=== PATIENT | male | born 1960 | race Caucasian/White ===

== ENCOUNTER → 2018-11-12 09:05 | Outpatient (CLI) | payer OTHER, SELFPAY ==
--- NOTE | 2018-11-12 | DI.US.S_ITS ---
PROCEDURE: US ABDOMEN COMPLETE INDICATIONS: ABDOMINAL PAIN TECHNIQUE: Real-time scanning was performed of the abdominal and retroperitoneal organs, with image documentation. COMPARISON: None. FINDINGS: Liver: Liver is normal in size and homogeneous in echotexture. 2 hepatic cyst present, largest measuring 2.0 cm. Gallbladder: No gallstones identified. Normal gallbladder wall. No pericholecystic fluid. Negative sonographic Leigh sign. Biliary ducts: Intrahepatic bile ducts are non-dilated. Extrahepatic bile duct caliber measures 5.0 mm. Normal is 6-7 mm or less in diameter, or 10 mm or less post-cholecystectomy. Pancreas: Visualized portions of the pancreas are sonographically normal. Spleen: Spleen is normal in size and homogeneous in echotexture. Kidneys: Kidneys are normal in size and echotexture. Right kidney measures 11.2 cm long; left kidney measures 10.9 cm long. No hydronephrosis or nephrolithiasis. No solid masses. Aorta: Visualized aorta is normal in caliber at less than 3 cm. Iliacs: Proximal common iliac arteries are normal in caliber at less than 2.5 cm. IVC: Intrahepatic inferior vena cava is patent. Miscellaneous: No free abdominal fluid. IMPRESSION: 1. No source for abdominal pain identified. Dictated by: Alex TERESA Interpreted: Sarah Mendez MD on 11/12/2018 at 11:12 Approved by: Sarah Mendez M.D. on 11/12/2018 at 12:56
== END ==
PROVIDERS: PCP Family Medicine; Visit Provider Chiropractor
DX: R10.9 Unspecified abdominal pain (principal)
CPT/HCPCS: 76700

== ENCOUNTER → 2019-10-20 08:55 | Outpatient (CLI) | payer OTHER, SELFPAY ==
--- NOTE | 2019-10-20 | DI.RAD.S_ITS ---
PROCEDURE: XR THORACIC SPINE 3V INDICATIONS: Thoracic root disorders, not elsewhere classified TECHNIQUE: 3 views of the thoracic spine were acquired. COMPARISON: [facility], CR, XR CERVICAL SPINE 4V OR 5V, 10/20/2019, 8:57. FINDINGS: Bones: No fractures or dislocations. There is a mild to moderate degree of degenerative disc disease with disc height reduction and anterior endplate osteophyte formation over the middle and lower thirds of the thoracic spine, without subluxation. No suspicious bony lesions. 12 pairs of ribs are noted, and appear intact where visualized. Soft tissues: No paravertebral stripe thickening. IMPRESSION: Mild to moderate degenerative disc disease over the middle and lower thirds of the thoracic spine without definite spinal or foraminal stenosis. Dictated by: Maxi Brown M.D. on 10/20/2019 at 11:06 Approved by: Maxi Brown M.D. on 10/20/2019 at 11:07
--- NOTE | 2019-10-20 | DI.RAD.S_ITS ---
PROCEDURE: XR CERVICAL SPINE 4V OR 5V INDICATIONS: Thoracic root disorders, not elsewhere classified TECHNIQUE: 5 views of the cervical spine acquired. COMPARISON: None. FINDINGS: Bones: No fractures or dislocations to the T1 level. Oblique images demonstrate no bony foraminal stenoses. There is a slight degree of degenerative disc height reduction at C4-5, C5-6 and to a minimal degree C6-7 Soft tissues: No prevertebral soft tissue swelling. IMPRESSION: Minimal degenerative disc disease along the mid cervical spine from C4-C5 through C6-C7 without associated identified spinal or foraminal stenosis. Dictated by: Maxi Brown M.D. on 10/20/2019 at 11:05 Approved by: Maxi Brown M.D. on 10/20/2019 at 11:06
== END ==
PROVIDERS: PCP Family Medicine; Visit Provider Chiropractor
DX: M51.14 Intervertebral disc disorders with radiculopathy, thoracic region (principal)
CPT/HCPCS: 72050; 72072

== ENCOUNTER → 2022-11-29 09:24 | Outpatient (CLI) | payer OTHER, SELFPAY ==
--- NOTE | 2022-11-29 09:27 | DI.RAD.S_ITS ---
PROCEDURE: XR LUMBAR SPINE MIN 4V INDICATIONS: BACK PAIN TECHNIQUE: 5 views of the lumbar spine were acquired, including bilateral oblique views. COMPARISON: None. FINDINGS: Bones: 5 nonrib-bearing vertebrae are present. There is 4 mm anterolisthesis of L3 on L4 and 4 mm retrolisthesis of L4 on L5. Degenerative endplate changes throughout lumbar spine is seen. No vertebral body compression fractures. No suspicious bony lesions. Soft tissues: Overlying bowel gas pattern is normal. No suspicious soft tissue calcifications. Oblique images: No pars defects. IMPRESSION: 1. Degenerative disc disease throughout lumbar spine. Grade 1 spondylolisthesis at L3-4 and L4-5 levels as above. No acute compression fracture. 2. No gross pars defects. Dictated by: Tyree Saunders M.D. on 11/29/2022 at 9:51 Approved by: Tyree Saunders M.D. on 11/29/2022 at 9:52
== END ==
PROVIDERS: PCP Physician Assistant; Referring Provider Physical Medicine & Rehabilitation; Visit Provider Physical Medicine & Rehabilitation
DX: M51.36 Other intervertebral disc degeneration, lumbar region (principal); M43.16 Spondylolisthesis, lumbar region; M54.50 Low back pain, unspecified; M76.62 Achilles tendinitis, left leg
CPT/HCPCS: 72110; 76882; 99214

== ENCOUNTER → 2023-06-15 16:34 | Outpatient (CLI) | payer OTHER, SELFPAY ==
--- NOTE | 2023-06-15 16:35 | DI.MRI.S_ITS ---
PROCEDURE: MR LUMBAR SPINE WO CON INDICATIONS: left LE EHL and Gastroc weakness TECHNIQUE: Noncontrast sagittal T1 spin echo and T2 fast echo, sagittal STIR, and T2 fast spin echo through the lumbar spine. In cases with scoliosis, additional coronal T2 fast spin echo may be performed. COMPARISON: [facility], , L-SPINE WITHOUT CONTRAST, 12/25/2011, 14:13. FINDINGS: Image quality: Excellent. Alignment and Curvature: There is normal bony alignment. Bone Marrow: Marrow is of normal overall signal. No acute vertebral body compression fractures. Spinal Cord: Conus medullaris terminates at the L1 level. Visualized cord demonstrates normal signal and size. Paraspinous Soft Tissues: No paravertebral masses. T12-L1: Mild disc desiccation. No canal stenosis. Mild bilateral foraminal narrowing. Findings are unchanged from the study dated December 25, 2011. L1-L2: Mild disc desiccation and height loss. Broad-based disc bulge. Mild facet ligamentum flavum hypertrophy. No canal stenosis. Mild bilateral foraminal narrowing. Findings are unchanged. L2-L3: Mild disc desiccation and height loss. Broad-based disc bulge. Moderate facet and ligamentum flavum hypertrophy. No canal stenosis. Mild bilateral foraminal stenosis. Findings are unchanged. L3-L4: Moderate disc desiccation and height loss. Broad-based disc bulge. Severe facet and ligamentum flavum hypertrophy. Mild canal stenosis. Moderate right and no left foraminal stenosis. The degree of disc desiccation and height loss and canal stenosis is increased when compared with the 2012 study. L4-L5: Severe disc desiccation and height loss. Vacuum disc phenomenon. Moderate facet ligamentum flavum hypertrophy. No canal stenosis. Mild bilateral foraminal stenosis. Findings are unchanged. L5-S1: Moderate disc desiccation and height loss. Mild facet and ligamentum flavum hypertrophy. No canal stenosis. Mild bilateral foraminal stenosis. IMPRESSION: 1. Overall findings are similar to the comparison MRI dated December 25, 2011. There is increased disc desiccation and height loss at L3-4 when compared with the prior study. 2. Mild canal stenosis is now present at L3-4. Dictated by: Georgie Jj M.D. on 06/18/2023 at 12:18 Approved by: Georgie Jj M.D. on 06/18/2023 at 12:27
== END ==
PROVIDERS: PCP Physician Assistant; Referring Provider Physical Medicine & Rehabilitation; Visit Provider Physical Medicine & Rehabilitation
DX: M54.16 Radiculopathy, lumbar region (principal); M43.16 Spondylolisthesis, lumbar region; M48.061 Spinal stenosis, lumbar region without neurogenic claudication
CPT/HCPCS: 72148

== ENCOUNTER → 2023-07-05 09:43 | Outpatient (CLI) | payer OTHER, SELFPAY | PROVIDERS: Absent Provider Physician Assistant; Family Provider Physician Assistant; PCP Physician Assistant; Referring Provider Physical Medicine & Rehabilitation; Visit Provider Physical Medicine & Rehabilitation | DX: M54.16 Radiculopathy, lumbar region (principal); M43.16 Spondylolisthesis, lumbar region | CPT/HCPCS: 95886; 95910 ==

== ENCOUNTER → 2023-08-23 08:47 | Outpatient (CLI) | payer OTHER, SELFPAY ==
--- NOTE | 2023-08-23 08:49 | DI.MRI.S_ITS ---
PROCEDURE: MR LOWER LEG LT WO CON COMPARISON: None. INDICATIONS: chronic gastroc weakness, achilles Technique: Multiplanar and multisequence MR images of left lower leg were obtained without IV contrast. FINDINGS: Bones and joints: There is no marrow edema. No fracture or dislocation. No suspicious bony lesions. No cortical erosion or abnormal periosteal reaction. Soft tissues: There is mildly increased T2 signal throughout soleus muscle and deep portion of inferior gastrocnemius muscle medial head. No other lower leg muscle or tendon signal abnormality is seen. No intramuscular mass or drainable fluid collection. IMPRESSION: 1. Suggestion of myositis versus muscle strain/low-grade partial-thickness tear involving inferior portion of gastrocnemius muscle and throughout soleus muscle. No full-thickness muscle or tendon rupture. No discrete soft tissue mass or drainable fluid collection. 2. No marrow edema. No fracture or dislocation. No evidence of abnormal tibial stress injury. Dictated by: Tyree Saunders M.D. on 08/23/2023 at 16:14 Approved by: Tyree Saunders M.D. on 08/23/2023 at 16:16
== END ==
PROVIDERS: Family Provider Physician Assistant; PCP Physician Assistant; Referring Provider Physical Medicine & Rehabilitation; Visit Provider Physical Medicine & Rehabilitation
DX: M76.60 Achilles tendinitis, unspecified leg (principal); S86.119A Strain of other muscle(s) and tendon(s) of posterior muscle group at lower leg level, unspecified leg, initial encounter
CPT/HCPCS: 73718

== ENCOUNTER → 2023-09-14 09:00 | Outpatient (CLI) | payer OTHER, SELFPAY ==
--- NOTE | 2023-09-14 09:01 | DI.MRI.S_ITS ---
PROCEDURE: MR ANKLE LT WO CON INDICATIONS: Left Heel Pain TECHNIQUE: Noncontrast sagittal T1 spin echo and T2 fast spin echo with fat saturation, axial proton density fast spin echo and T2 fast spin echo with fat saturation, coronal T1 spin echo and T2 fast spin echo with fat saturation through the ankle/hindfoot. COMPARISON: [facility], MR, MR LOWER LEG LT WO CON, 08/23/2023, 9:14. [facility] [place], CR, XR ANKLE 3 VIEWS WEIGHT BEARING LEFT, 09/04/2023, 8:43. FINDINGS: Image quality: Excellent. Bones and joints: No bone marrow contusions or fractures. No hindfoot coalitions. No osteochondral injuries of the talar dome. Mild nonspecific subcutaneous edema surrounding the ankle. Medial structures: The deep and superficial layers of the deltoid ligament appear intact. The spring ligament components are intact. Mild posterior tibialis tenosynovitis. The flexor digitorum longus and flexor hallucis longus tendons are intact. The posterior tibial neurovascular bundle appears normal within the tarsal tunnel, without extrinsic mass effect. Lateral structures: Suspected prior low-grade sprains of the anterior talofibular ligament and calcaneofibular ligament. The posterior talofibular ligament is intact. The anterior and posterior tibiofibular ligaments appear intact. The peroneus longus and brevis tendons demonstrate mild tendinosis. The sinus tarsi demonstrates normal fatty signal. Anterior structures: The tibialis anterior, extensor hallucis longus, and extensor digitorum longus tendons appear intact. The dorsal talonavicular ligament appears intact. Posterior and plantar structures: Thickening of the Achilles tendon may be secondary to chronic tendinosis or prior tearing. There is mild thickening of the proximal plantar fascia without surrounding edema. No abductor digiti quinti muscle atrophy to suggest Suarez neuropathy. IMPRESSION: 1. Thickening of the Achilles tendon is likely secondary to remote prior tendon tearing and scarring versus chronic tendinosis. 2. Mild chronic proximal plantar fasciitis. 3. Mild distal posterior tibialis tenosynovitis. 4. Mild osseous edema at the posterior medial aspect of the medial malleolus may be secondary to an osseous contusion versus reactive to the adjacent tenosynovitis. 5. Remote prior low-grade sprains of the anterior talofibular ligament and the calcaneofibular ligament. 6. Mild peroneus brevis and longus tendinosis. Approved by: Rob Maloney M.D. on 09/14/2023 at 13:56
== END ==
PROVIDERS: Family Provider Physician Assistant; PCP Physician Assistant; Referring Provider Orthopaedic Surgery Foot and Ankle Surgery; Visit Provider Orthopaedic Surgery Foot and Ankle Surgery
DX: M72.2 Plantar fascial fibromatosis (principal); M65.872 Other synovitis and tenosynovitis, left ankle and foot; S93.412A Sprain of calcaneofibular ligament of left ankle, initial encounter; S93.492A Sprain of other ligament of left ankle, initial encounter; M79.672 Pain in left foot
CPT/HCPCS: 73721